=== PATIENT | male | born 1960 | race African-American/Black ===

== ENCOUNTER 2023-07-09 02:00 | Emergency (ER) | payer OTHER ==
[~2023-07-09] VITALS: Ht 182.9 cm; Wt 90.0 kg
[2023-07-09 02:04] VITALS: BP 107/65; PULSE 81; RESP 14; TEMP 98.9; O2SAT 99
[2023-07-09 02:46] LABS: *AMPHETAMINES SCREEN URINE NEGATIVE (NEGATIVE); *BARBITURATES SCREEN URINE NEGATIVE (NEGATIVE); *BENZODIAZEPINES SCREEN URINE NEGATIVE (NEGATIVE); *COCAINE SCREEN URINE NEGATIVE (NEGATIVE); METHADONE URINE SCREEN NEGATIVE (NEGATIVE); OPIATES URINE SCREEN NEGATIVE (NEGATIVE)
[2023-07-09 02:47] LABS: CANNABINOID URINE SCREEN NEGATIVE (NEGATIVE); ECSTASY MDMA SCREEN URINE NEGATIVE (NEGATIVE); PHENCYCLIDINE URINE SCREEN NEGATIVE (NEGATIVE)
== END 2023-07-09 03:50 | disposition home or self-care (01) ==
LOC: ER 02:00
DX: Z00.00 Encounter for general adult medical examination without abnormal findings (principal)
CPT/HCPCS: 80305; 99283